=== PATIENT | female | born 1960 | race Caucasian/White ===

== ENCOUNTER 2020-02-09 21:51 | Observation (INO) ==
--- NOTE | 2020-02-09 21:58 | DR.AMS ---
HPI Time Seen Time Seen by Provider: 02/09/20 21:54 HPI Comment HPI Comment: 59 yo cf w/ pmh of cva presents w/ ams onset 4.5 hrs [employer]. Reportedly recently dc'd from 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 approx. 1730 took Ativan po on the car ride home. Became increasingly confused and lethargic. No change in right sided weakness/ chronic right sided facial droop. EMS summoned. Initially responsive only to painful stimuli. Given multiple doses of Narcan with improvement of mental status. Now on arrival to ED responsive to loud vocal stimuli and moving LUE/ LLE spontaneously. NO recent head trauma, f/c, n/v, abd pain, CP or sob. 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) Quality Quality: Decreased Alertness and Confusion Severity Severity: Moderate Context Recent: Drug Use; denies Fever, Urinary Symptoms, Vomiting and Trauma History Of: CVA PMH PMH Past Medical History: CVA, Diabetes, Hypertension and MT Past Medical History Comment: ckd Past Surgical History: Yes Surgical History: Cholecystectomy Family History Family Medical History: Diabetes Mellitus and Hypertension Social History Does patient currently use any type of tobacco product: No Do you use any recreational Drugs:: No ROS Review of Systems Unable to Obtain Due To: Altered mental status PE Vitals Vital Signs: Temp Pulse Resp BP Pulse Ox 02/09/20 23:15 115 H 40 H 96 02/09/20 23:03 119 H 30 H 95 02/09/20 21:53 99.8 F H 116 H 24 126/64 96 02/04/20 13:15 170/89 General Limitations: Altered Mental Status General Appearance: Other (alert, responsive to loud vocal stimuli, somulent. ) Head Head Exam: Normal Inspection Eyes Eye exam: Normal Appearance ENT ENT Exam: Normal Exam External Ear Exam: Normal External Inspection Nose Exam: Normal Nose Exam Mouth Exam: Normal Inspection Throat Exam: Normal Inspection Neck Neck Exam: Normal Inspection Chest Chest Inspection: Normal Inspection Respiratory Respiratory Exam: Normal Lung Sounds Bilat Cardiovascular Cardiovascular Exam: Regular Rate and Normal Rhythm Abdominal Exam Abdominal Exam: Normal Inspection, Normal Bowel Sounds and Soft Extremities Extremities Exam: Normal Inspection Back Back Exam: Normal Inspection Psychological Expanded Psychiatric Exam: Other (limited eval secondary to ams. ) Skin Skin Exam: Warm, Dry, Intact and Normal Color Other Exam Other Exam: neuro: Alert. Non verbal. Localizes painful stimuli, openes eyes to lour vocal stimulie. Moves LUE/ LLE w/o gross focal defecit. Right sided facial droop. Somulent. MDM Differential Diagnosis Metabolic: Hypoglycemia and Hypoxemia Structural: CVA and SAH Toxicologic: Drug Overdose and ETOH Intoxification COURSE Treatment Treatment: 59 yo f presents w/ ams after taking Ativan after dc from outside hospital for ischemic cva w/ residual left sided defecits. Presented at 4.5 hrs, outside of tpa window. AMS improved w/ Narcan. On serial re eval patient now awake/ alert but still mildly confused per . PEr , right sided defecits are at her baseline when dc'd from hospital. CT head with likely suba cute cva h/e motion artifact noted. d/w hospitalist Dr cevallos whom agrees to admit. Education/Counseling Education/Counseling: Family Educated On: Treatment, Diagnosis, Prognosis and Needs for Follow Up ROR Labs Reviewed Result Diagrams: 02/09/20 22:05 02/09/20 22:05 Laboratory: WBC 14.5 X10^3/uL (3.6-10.0) H 02/09/20 22:05 RBC 4.46 X10^6/uL (3.5-5.4) 02/09/20 22:05 Hgb 13.1 g/dL (12.0-16.0) 02/09/20 22:05 Hct 40.3 % (36.0-47.0) 02/09/20 22:05 MCV 90.4 fL (80.0-100.0) 02/09/20 22:05 MCH 29.3 pg (27.0-34.0) 02/09/20 22:05 MCHC 32.4 g/dL (33.0-35.0) L 02/09/20 22:05 RDW 15.1 % (11.6-16.5) 02/09/20 22:05 Plt Count 372 X10^3/uL (150.0-450.0) 02/09/20 22:05 MPV 7.8 fL (7.4-11.0) 02/09/20 22:05 Neut % (Auto) 66.2 % (42.0-75.0) 02/09/20 22:05 Lymph % (Auto) 23.7 % (21.0-51.0) 02/09/20 22:05 [place] % (Auto) 6.6 % (0.0-13.0) 02/09/20 22:05 Eos % (Auto) 2.1 % (0.9-2.9) 02/09/20 22:05 Baso % (Auto) 1.4 % (0.2-1.0) H 02/09/20 22:05 Neut # (Auto) 9.6 x10^3/uL (2.2-4.8) H 02/09/20 22:05 Lymph # (Auto) 3.4 X10^3/uL (1.3-2.9) H 02/09/20 22:05 [place] # (Auto) 1.0 x10^3/uL (0.3-0.8) H 02/09/20 22:05 Eos # (Auto) 0.3 x10^3/uL (0.0-0.2) H 02/09/20 22:05 Baso # (Auto) 0.2 X10^3/uL (0.0-0.1) H 02/09/20 22:05 Absolute Nucleated RBC 0.0 /100WBC 02/09/20 22:05 Sodium 134 mmol/L (136-145) L 02/09/20 22:05 Corrected Sodium 138 mmol/L (136-145) 02/09/20 22:05 Potassium 3.8 mmol/L (3.5-5.1) 02/09/20 22:05 Chloride 98 mmol/L (98-107) 02/09/20 22:05 Carbon Dioxide 28.3 mmol/L (21-32) 02/09/20 22:05 BUN 13 mg/dL (7-18) 02/09/20 22:05 Creatinine 1.77 mg/dL (0.55-1.02) H 02/09/20 22:05 Est GFR (MDRD) Af Amer 38 (>60) L 02/09/20 22:05 Est GFR (MDRD) Non-Af 31 (>60) L 02/09/20 22:05 Glucose 267 mg/dL (65-99) H 02/09/20 22:05 POC Glucose (mg/dL) 235 mg/dL (65-99) H 02/09/20 22:01 Calcium 8.9 mg/dL (8.5-10.1) 02/09/20 22:05 Corrected Calcium 9.7 mg/dL (8.5-10.1) 02/09/20 22:05 Total Bilirubin 0.90 mg/dL (0.2-1.0) 02/09/20 22:05 AST 11 Units/L (15-37) L 02/09/20 22:05 ALT 10 Units/L (12-78) L 02/09/20 22:05 Alkaline Phosphatase 107 Units/L (46-116) 02/09/20 22:05 Troponin I 0.05 ng/mL (0-1.5) 02/09/20 22:05 Total Protein 7.6 g/dL (6.4-8.2) 02/09/20 22:05 Albumin 3.0 g/dL (3.4-5.0) L 02/09/20 22:05 Globulin 4.6 g/dL (2.5-4.5) H 02/09/20 22:05 Albumin/Globulin Ratio 0.7 Ratio (1.1-2.1) L 02/09/20 22:05 Specimen Type Catherized urine 02/09/20 23:00 Urine Color Yellow (YELLOW) 02/09/20 23:00 Urine Appearance Clear (CLEAR) 02/09/20 23:00 Urine pH 6.0 (5.0 - 8.0) 02/09/20 23:00 Ur Specific [place] 1.015 (1.000-1.030) 02/09/20 23:00 Urine Protein 3+ (NEGATIVE) 02/09/20 23:00 Urine Glucose (UA) 3+ (NEGATIVE) 02/09/20 23:00 Urine Ketones 1+ (NEGATIVE) 02/09/20 23:00 Urine Occult Blood 3+ (NEGATIVE) 02/09/20 23:00 Urine Nitrite Negative (NEGATIVE) 02/09/20 23:00 Urine Bilirubin Negative (NEGATIVE) 02/09/20 23:00 Urine Urobilinogen Normal (NORMAL) 02/09/20 23:00 Ur Leukocyte Esterase 1+ (NEGATIVE) 02/09/20 23:00 Urine Opiates Screen Negative (NEG=<300) 02/09/20 23:00 Urine Methadone Screen Negative (NEG=<300) 02/09/20 23:00 Ur Barbiturates Screen Negative (NEG=<200) 02/09/20 23:00 Ur Phencyclidine Scrn Negative (NEG=<25) 02/09/20 23:00 Ur Amphetamines Screen Negative (NEG=<1000) 02/09/20 23:00 U Benzodiazepines Scrn Negative (NEG=<200) 02/09/20 23:00 Urine Cocaine Screen Negative (NEG=<300) 02/09/20 23:00 U Marijuana (THC) Screen Negative (NEG=<50) 02/09/20 23:00 Ethyl Alcohol mg/dL < 3 mg/dL (0-19.9) 02/09/20 22:05 EKG Rate: 118 [place]: Normal Rhythm: ST Block: None Hypertrophy: None ST: Nonsp (prolonged qtc) Opioid Opioid Risk Tool Age ([place] box if 16-45): No History of Preadolescent Sexual Abuse: No Total: 0 Total Score Risk Category: Low Risk Copyright: Seb MANUEL predicting aberrant behaviors Diagnosis Discharge Problem: Overdose of analgesic Qualifiers: Encounter type: initial encounter Injury intent: accidental or unintentional Qualified Code(s): T39.91XA - Poisoning by unspecified nonopioid analgesic, antipyretic and antirheumatic, accidental (unintentional), initial encounter CVA (cerebral vascular accident) Qualifiers: CVA mechanism: unspecified Qualified Code(s): I63.9 - Cerebral infarction, unspecified Altered mental state Qualifiers: Altered mental status type: somnolence Qualified Code(s): R40.0 - Somnolence
[2020-02-09 22:11] VITALS: BMI 26.6
[2020-02-09 22:18] LABS: BASOPHILS # (AUTO) 0.2 X10^3/uL (0.0-0.1); BASOPHILS % (AUTO) 1.4 % (0.2-1.0); EOSINOPHILS # (AUTO) 0.3 x10^3/uL (0.0-0.2); EOSINOPHILS % (AUTO) 2.1 % (0.9-2.9); HEMATOCRIT 40.3 % (36.0-47.0); HEMOGLOBIN 13.1 g/dL (12.0-16.0); LYMPHOCYTES # (AUTO) 3.4 X10^3/uL (1.3-2.9); LYMPHOCYTES % (AUTO) 23.7 % (21.0-51.0); MEAN CORPUSCULAR HEMOGLOBIN 29.3 pg (27.0-34.0); MEAN CORPUSCULAR HGB CONC 32.4 g/dL (33.0-35.0); MEAN CORPUSCULAR VOLUME 90.4 fL (80.0-100.0); MEAN PLATELET VOLUME 7.8 fL (7.4-11.0); MONOCYTES % (AUTO) 6.6 % (0.0-13.0); NEUTROPHILS # (AUTO) 9.6 x10^3/uL (2.2-4.8); NEUTROPHILS % (AUTO) 66.2 % (42.0-75.0); PLATELET COUNT 372 X10^3/uL (150.0-450.0); RED BLOOD COUNT 4.46 X10^6/uL (3.5-5.4); RED CELL DISTRIBUTION WIDTH 15.1 % (11.6-16.5); WHITE BLOOD COUNT 14.5 X10^3/uL (3.6-10.0)
[2020-02-09] MEDS ORDERED: NS 1000 ML 1,000 ML ONE (22:21)
[2020-02-09] MEDS ORDERED: NS 1000 ML 1,000 ML IV ONE (22:22)
[2020-02-09 22:34] LABS: CALCIUM 8.9 mg/dL (8.5-10.1); CARBON DIOXIDE 28.3 mmol/L (21-32); COR CA(FOR HYPOALB) 9.7 mg/dL (8.5-10.1); CREATININE 1.77 mg/dL (0.55-1.02); TOTAL PROTEIN 7.6 g/dL (6.4-8.2); TROPONIN I 0.05 ng/mL (0-1.5)
--- NOTE | 2020-02-09 23:03 | RAD ---
HISTORYAMS, SLURRED SPEECHSTUDYCHEST, 1 VIEWCOMPARISONNone mildly enlargedFINDINGSThe trachea is midline. The cardiac silhouette is unremarkable. Low lung volume. No focal consolidation, pneumothorax or pleural effusion.. The bony thorax is unremarkable.IMPRESSIONMild cardiomegaly. Low lung volume. No focal consolidation.Electronically signed by: Shaniqua Rainey (Feb 09, 2020 23:02:27)
--- NOTE | 2020-02-09 23:08 | CT ---
HISTORYAMS, SLURRED SPEECHSTUDYBRAIN W/O [id number] axial sections were obtained from the craniovertebral junc tion through the vertex using brain and bone algorithms. IV contrast was not administered. Dose redu ction techniques including Automated Exposure Control (AEC) and adjustment of mA and kV were utilized .FINDINGSSubacute/chronic appearing right temporal occipital lobe infarct, again seen. Exam is somewh at limited due to motion. There appears to be loss of palm-white differentiation of the right frontal lobe and possibly left frontal lobe, to a lesser extent. No acute intraparenchymal hemorrhage, extra -axial fluid collection, hydrocephalus or midline shift. The ventricles and sulci are mildly prominen t suggest atrophy. Mild nonspecific patchy periventricular white matter low density likely represent chronic micorvascular ischemic changes.The calvarium and the cranial base including the sella, middl e ears, and mastoids are unremarkable.The visualized orbits and paranasal sinuses are normal.IMPRESSI ONExam is limited by motion. Question loss of palm-white differentiation of the right frontal, possib ly left frontal lobe. While this could be artifactual, acute/subacute infarct cannot be entirely excl uded. Please correlate clinically with symptoms. Consider MRI for further assessment when clinically appropriate.Atrophy and evidence of chornic microvascular ischemic changes. Subacute/chronic appearin g right temporo occipital lobe infarct.Mild sinus disease as detailed.Electronically signed by: Shaniqua Rainey (Feb 09, 2020 23:07:51)
[2020-02-09 23:11] LABS: APPEARANCE,URINE CLEAR (CLEAR); BILIRUBIN,URINE NEGATIVE (NEGATIVE); BLOOD/HEMOGLOBIN,URINE 3+ (NEGATIVE); COLOR,URINE YELLOW (YELLOW); GLUCOSE, URINE 3+ (NEGATIVE); KETONES,URINE 1+ (NEGATIVE); LEUKOCYTE ESTERASE ,URINE 1+ (NEGATIVE); NITRITES,URINE NEGATIVE (NEGATIVE); PROTEIN,URINE 3+ (NEGATIVE); UROBILINOGEN,URINE NORMAL (NORMAL)
[2020-02-09] MEDS ORDERED: ASPIRIN ONE (23:24)
[2020-02-09] MEDS: ASPIRIN PO SCH (23:30)
[2020-02-09] MEDS ORDERED: HumaLOG SC PRN (23:48)
[2020-02-09] MEDS ORDERED: TYLENOL 500 MG TAB EXTRA STRENGTH PO ONE (23:49)
[2020-02-09] MEDS: TYLENOL 500 MG TAB EXTRA STRENGTH PO PRN (23:55)
[2020-02-09] MEDS: NS 1000 ML 1,000 ML IV SCH (23:58)
[2020-02-10] MEDS ORDERED: NS 1000 ML 1,000 ML ONE (05:27)
[2020-02-10] MEDS: NS 1000 ML 1,000 ML IV SCH (05:32)
[2020-02-10] MEDS: TYLENOL 500 MG TAB EXTRA STRENGTH PO PRN (07:55)
[2020-02-10] MEDS: ASPIRIN PO SCH (08:04)
[2020-02-10 09:16] VITALS: BP 140/74
[2020-02-10] MEDS ORDERED: LIPITOR TAB 40 MG PO SCH (10:00)
[2020-02-10] MEDS ORDERED: CARDIZEM CD 240 MG 24-HR PO SCH (10:00)
[2020-02-10 10:06] LABS: CALCIUM 8.6 mg/dL (8.5-10.1); CARBON DIOXIDE 27.1 mmol/L (21-32); CREATININE 1.53 mg/dL (0.55-1.02); TROPONIN I 0.03 ng/mL (0-1.5)
--- NOTE | 2020-02-10 10:20 | DR.SSS ---
SHORT STAY SUMMARY Admission Date Date of Admission: 02/09/20 Discharge Date Discharge Date: 02/10/20 Admission Diagnoses Admission Diagnoses: Altered mental status Lethargy Discharge Diagnoses Discharge Diagnoses: Medication side effect Chronic benzodiazepam use Recent CVA Chief Complaint Chief Complaint: altered mental status, drowsy History of Present Illness History of Present Illness: Ms. Duran is a 59y/o female with a hx of recent CVA presented wit AMS. 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 approx. 1730 took Ativan po on the car ride home. She became increasingly confused and lethargic. No change in right sided weakness/ chronic right sided facial droop. Initially responsive only to painful stimuli. Given multiple doses of Narcan with improvement of mental status. Now on arrival to ED responsive to loud vocal stimuli and moving LUE/ LLE spontaneously. No recent head trauma, f/c, n/v, abd pain, CP or sob. CT-Head done in the ED showed artifact and previous stroke. Patiennt admitted for further monitoring. Past Medical History Past Medical History: CVA, Diabetes, Hypertension and NM Additional Medical History: Atrial fibrillation MGUS Past Surgical History Surgical History: Cholecystectomy Allergies Allergies Allergy/AdvReac Type Severity Reaction Status Date / Time No Known Drug Allergies Allergy Verified 02/04/20 11:31 Medications Home Medications: No Known Drug Allergies Allergy (Verified 02/04/20 11:31) CONTINUE taking the following medications apixaban [Eliquis] 5 mg PO BID 02/09/20 [History] atorvastatin 80 mg PO DAILY 02/09/20 [History] diltiazem HCl 240 mg PO DAILY 02/09/20 [History] insulin glargine U-300 conc [Toujeo SoloStar U-300 Insulin] unit SUBCUT 02/09/20 [History] insulin lispro [Humalog KwikPen Insulin] unit SUBCUT 02/09/20 [History] lorazepam 1 mg PO TID 02/09/20 [History] sertraline 50 mg PO DAILY 02/09/20 [History] tizanidine 4 mg PO Q8H PRN 02/09/20 [History] tramadol 100 mg PO QID 02/09/20 [History] trazodone 50 mg PO HS 02/09/20 [History] Family History Family Medical History: Diabetes Mellitus and Hypertension Social History Does patient currently use any type of tobacco product: No Have you used tobacco products in the last 12 months: No Type of Tobacco Use: None Does any household member use tobacco: No Alcohol Use: None Drug Use: None Review of Systems Eyes: No Symptoms Reported ENT: No Symptoms Reported Respiratory: No Symptoms Reported Cardiovascular: No Symptoms Reported Gastrointestinal: No Symptoms Reported Genitourinary: No Symptoms Reported Skin: No Symptoms Reported Neurological: Weakness, Change in Speech and Confusion Physical Exam Vital Signs: Last Vital Signs Temp 98.0 F 02/10/20 08:55 Pulse 86 02/10/20 08:55 Resp 20 02/10/20 08:55 BP 140/74 02/10/20 08:55 Pulse Ox 96 02/10/20 08:55 Oriented: Normal Eyes: Normal Ear: Normal Throat: Normal Respiratory: Clear Throughout Cardiovascular: Normal Auscultation: Bowel Sounds: Normal Palpation: Normal Tenderness: Normal Skin: Normal Musculoskeletal: Right (slight right sided weakness, motor 4/5 Left intact 5/5 ) Psychiatric: Anxiety Mood Description: Calm Affect: Anxious Speech Pattern: Clear and Appropriate Labs Labs: Laboratory Last Values WBC 14.5 X10^3/uL (3.6-10.0) H 02/09/20 22:05 RBC 4.46 X10^6/uL (3.5-5.4) 02/09/20 22:05 Hgb 13.1 g/dL (12.0-16.0) 02/09/20 22:05 Hct 40.3 % (36.0-47.0) 02/09/20 22:05 MCV 90.4 fL (80.0-100.0) 02/09/20 22:05 MCH 29.3 pg (27.0-34.0) 02/09/20 22:05 MCHC 32.4 g/dL (33.0-35.0) L 02/09/20 22:05 RDW 15.1 % (11.6-16.5) 02/09/20 22:05 Plt Count 372 X10^3/uL (150.0-450.0) 02/09/20 22:05 MPV 7.8 fL (7.4-11.0) 02/09/20 22:05 Neut % (Auto) 66.2 % (42.0-75.0) 02/09/20 22:05 Lymph % (Auto) 23.7 % (21.0-51.0) 02/09/20 22:05 [place] % (Auto) 6.6 % (0.0-13.0) 02/09/20 22:05 Eos % (Auto) 2.1 % (0.9-2.9) 02/09/20 22:05 Baso % (Auto) 1.4 % (0.2-1.0) H 02/09/20 22:05 Neut # (Auto) 9.6 x10^3/uL (2.2-4.8) H 02/09/20 22:05 Lymph # (Auto) 3.4 X10^3/uL (1.3-2.9) H 02/09/20 22:05 [place] # (Auto) 1.0 x10^3/uL (0.3-0.8) H 02/09/20 22:05 Eos # (Auto) 0.3 x10^3/uL (0.0-0.2) H 02/09/20 22:05 Baso # (Auto) 0.2 X10^3/uL (0.0-0.1) H 02/09/20 22:05 Absolute Nucleated RBC 0.0 /100WBC 02/09/20 22:05 Sodium 137 mmol/L (136-145) 02/10/20 09:30 Corrected Sodium 139 mmol/L (136-145) 02/10/20 09:30 Potassium 3.5 mmol/L (3.5-5.1) 02/10/20 09:30 Chloride 100 mmol/L (98-107) 02/10/20 09:30 Carbon Dioxide 27.1 mmol/L (21-32) 02/10/20 09:30 BUN 14 mg/dL (7-18) 02/10/20 09:30 Creatinine 1.53 mg/dL (0.55-1.02) H 02/10/20 09:30 Est GFR (MDRD) Af Amer 45 (>60) L 02/10/20 09:30 Est GFR (MDRD) Non-Af 37 (>60) L 02/10/20 09:30 Glucose 184 mg/dL (65-99) H 02/10/20 09:30 POC Glucose (mg/dL) 202 mg/dL (65-99) H 02/10/20 05:53 Calcium 8.6 mg/dL (8.5-10.1) 02/10/20 09:30 Corrected Calcium 9.7 mg/dL (8.5-10.1) 02/09/20 22:05 Total Bilirubin 0.90 mg/dL (0.2-1.0) 02/09/20 22:05 AST 11 Units/L (15-37) L 02/09/20 22:05 ALT 10 Units/L (12-78) L 02/09/20 22:05 Alkaline Phosphatase 107 Units/L (46-116) 02/09/20 22:05 Troponin I 0.03 ng/mL (0-1.5) 02/10/20 09:30 Total Protein 7.6 g/dL (6.4-8.2) 02/09/20 22:05 Albumin 3.0 g/dL (3.4-5.0) L 02/09/20 22:05 Globulin 4.6 g/dL (2.5-4.5) H 02/09/20 22:05 Albumin/Globulin Ratio 0.7 Ratio (1.1-2.1) L 02/09/20 22:05 Specimen Type Catherized urine 02/09/20 23:00 Urine Color Yellow (YELLOW) 02/09/20 23:00 Urine Appearance Clear (CLEAR) 02/09/20 23:00 Urine pH 6.0 (5.0 - 8.0) 02/09/20 23:00 Ur Specific [place] 1.015 (1.000-1.030) 02/09/20 23:00 Urine Protein 3+ (NEGATIVE) 02/09/20 23:00 Urine Glucose (UA) 3+ (NEGATIVE) 02/09/20 23:00 Urine Ketones 1+ (NEGATIVE) 02/09/20 23:00 Urine Occult Blood 3+ (NEGATIVE) 02/09/20 23:00 Urine Nitrite Negative (NEGATIVE) 02/09/20 23:00 Urine Bilirubin Negative (NEGATIVE) 02/09/20 23:00 Urine Urobilinogen Normal (NORMAL) 02/09/20 23:00 Ur Leukocyte Esterase 1+ (NEGATIVE) 02/09/20 23:00 Urine Opiates Screen Negative (NEG=<300) 02/09/20 23:00 Urine Methadone Screen Negative (NEG=<300) 02/09/20 23:00 Ur Barbiturates Screen Negative (NEG=<200) 02/09/20 23:00 Ur Phencyclidine Scrn Negative (NEG=<25) 02/09/20 23:00 Ur Amphetamines Screen Negative (NEG=<1000) 02/09/20 23:00 U Benzodiazepines Scrn Negative (NEG=<200) 02/09/20 23:00 Urine Cocaine Screen Negative (NEG=<300) 02/09/20 23:00 U Marijuana (THC) Screen Negative (NEG=<50) 02/09/20 23:00 Ethyl Alcohol mg/dL < 3 mg/dL (0-19.9) 02/09/20 22:05 Hospital Course Hospital Course: Patient presented with altered mental status and lethargy. She was recently discharged from [place] with recent stroke and right sided weakn ess. Patient is on chronic benzodiazepines and reports taking her ativan prior to leaving the hospital. She does not recall taking medications during the car ride. She mentions that she was anxious and is nore sure if her gave her ativan to calm her down. UDS negative. Patient was lethargic on presentation and received multiple doses of narcan. She woke up with that and was able to communicate. Patient seen the following day and was alert and oriented. She did not have any new neurological deficits. Patient is scheduled to see her PCP and neurologist. She was stable for discharge. She was advsied to discuss her medications with her PCP. She is on ativan prn along with tizanidine and tramadol. Discharge Medications Discharge Medications: Home Medication List apixaban [Eliquis] 5 mg PO BID 02/09/20 [History] atorvastatin 80 mg PO DAILY 02/09/20 [History] diltiazem HCl 240 mg PO DAILY 02/09/20 [History] insulin glargine U-300 conc [Toujeo SoloStar U-300 Insulin] unit SUBCUT 02/09/20 [History] insulin lispro [Humalog KwikPen Insulin] unit SUBCUT 02/09/20 [History] lorazepam 1 mg PO TID 02/09/20 [History] sertraline 50 mg PO DAILY 02/09/20 [History] tizanidine 4 mg PO Q8H PRN 02/09/20 [History] tramadol 100 mg PO QID 02/09/20 [History] trazodone 50 mg PO HS 02/09/20 [History] Prescriptions: Discharge Disposition Discharge Disposition: Home
[2020-02-10] MEDS ORDERED: SNACK - Diabetic Appropriate PO SCH (20:00)
== END 2020-02-10 11:30 | disposition home or self-care (01) ==
LOC: OBS 21:52 → ER 21:52 → OBS 23:45 → MED/SURG 02-10 07:52 → UNDODISOB 02-10 08:47
PROVIDERS: ADMIT Internal Medicine; ATTEND Internal Medicine

== ENCOUNTER 2021-04-23 14:00 | Observation (INO) ==
[2021-04-23 14:17] VITALS: BMI 29.5
[2021-04-23] MEDS ORDERED: NS 1,000 ML IV 1,000 ML ONE (14:36)
--- NOTE | 2021-04-23 14:47 | DR.GENAD ---
HPI Time Seen Time Seen by Provider: 04/23/21 14:32 PCP Primary Care Physician: DR. KILGORE Complaint/Symptoms Chief Complaint:: PT'S STATES PT HAS NOT COMPREHENDING WELL ONSET YESTERDAY. ALSO STATES PT KEEP ASKING SAME QUESTIONS OVER & OVER. PT HAS HX OF STROKE. IN TRIAGE PT A&O X3, PT ABLE TO SPEAK IN COMPLETE SENTENCES @ THIS TIME. COVID-19 Coronavirus risk:travel/contact w/high risk person: No Has patient experienced Coronavirus symptoms: No Nurses notes reviewed Nurses Notes Review: Yes Source History Provided: Patient Mode of Arrival Mode of Arrival: Ambulatory Timing Onset of Chief Complaint: 04/22/21 Came on: Suddenly Duration Duration: Constant Duration: Hours Severity Severity: Moderate PMH PMH Past Medical History: Yes Past Medical History: CVA, Diabetes, Hypertension and [place] Past Surgical History: Yes Surgical History: Cholecystectomy, Hysterectomy and Ortho Surgery Past Surgical History Comment: BACK SURGERY Family History History of Family Medical Conditions: Yes Family Medical History: Diabetes Mellitus and Hypertension Social History Does patient currently use any type of tobacco product: Yes Have you used tobacco products in the last 12 months: Yes Type of Tobacco Use: Cigarettes Do you use any recreational Drugs:: No Travel Risk Coronavirus risk:travel/contact w/high risk person: No Has patient experienced Coronavirus symptoms: No Infectious screening Have you traveled outside the country in the last 6 months?: No Isolation: Standard ROS Review of Systems Constitutional: No Symptoms Reported and See HPI; negative Fever, Weakness and Fatigue Eyes: No Symptoms Reported and See HPI; negative Blurred Vision and Diplopia ENTM: No Symptoms Reported and See HPI; negative Nose Discharge and Nose Congestion Respiratoy: See HPI and Short of Breath (ON EXERTION); negative Moist Cough and Wheezing Cardiovascular: No Symptoms Reported and See HPI; negative Chest Pain Gastrointestinal/Abdominal: No Symptoms Reported and See HPI; negative Abdominal Pain, Diarrhea and Vomiting Genitourinary: No Symptoms Reported and See HPI; negative Dysuria Neurological: See HPI and Headache; negative Weakness and Dizziness Musculoskeletal: No Symptoms Reported and See HPI Integumentary: No Symptoms Reported and See HPI; negative Change in Color, Rash and Juandice Hematologic/Lymphatic: No Symptoms Reported and See HPI; negative Easy Bruising Endocrine: No Symptoms Reported and See HPI; negative Increased Thirst and Increased Urine Psychiatric: No Symptoms Reported and See HPI All Other Systems: Reviewed and Negative PE Vital Signs Vitals: Temperature 98.5 F Pulse Rate 87 Respiratory Rate 18 Blood Pressure [Left Arm] 140/74 Blood Pressure 181/77 O2 Sat by Pulse Oximetry 95 General Limitations: No Limitations General Appearance: Alert and In No Apparent Distress Head Head Exam: Normal Inspection Eyes Eye exam: Normal Appearance; negative Scleral Icterus and Conjunctival Injection ENT ENT Exam: Normal Exam, Normal Oropharynx, Normal External Ear Exam and TM's Normal Bilaterally External Ear Exam: Normal External Inspection; negative Mastoid Tenderness TM/Canal Exam: Bilateral: Normal Nose Exam: Normal Nose Exam Mouth Exam: Normal Inspection; negative Lip Swelling and Tongue Swelling Throat Exam: Normal Inspection; negative Tonsillar Erythema, Tonsillomegaly and Tonsillar Exudate Neck Neck Exam: Normal Inspection and Trachea Midline; negative Tenderness Chest Chest Inspection: Normal Inspection and Symmetric Chest Wall Rise; negative Tenderness Respiratory Respiratory Exam: Normal Lung Sounds Bilat; negative Accessory Muscle Use, Chest Wall Tenderness and Respiratory Distress Respiratory Exam: Bilateral: Rhonchi and Lower: Rhonchi Cardiovascular Cardiovascular Exam: Regular Rate, Normal Rhythm and Normal Heart Sounds; negative Systolic Murmur and Diastolic Murmur Abdominal Exam Abdominal Exam: Normal Inspection, Normal Bowel Sounds and Soft; negative Tenderness Extremities Extremities Exam: Normal Inspection Back Back Exam: Normal Inspection; negative (R) CVA Tenderness and (L) CVA Tenderness Neurologic Neurological Exam: Alert Psychiatric Psychiatric Exam: Normal Affect and Normal Mood Skin Skin Exam: Warm, Dry, Intact and Normal Color ROR Labs Reviewed Result Diagrams: 04/23/21 15:23 04/23/21 15:25 Laboratory: WBC 14.1 X10^3/uL (3.6-10.0) H 04/23/21 15:23 RBC 4.15 X10^6/uL (3.5-5.4) 04/23/21 15:23 Hgb 12.1 g/dL (12.0-16.0) 04/23/21 15:23 Hct 35.7 % (36.0-47.0) L 04/23/21 15:23 MCV 86.0 fL (80.0-100.0) 04/23/21 15:23 MCH 29.1 pg (27.0-34.0) 04/23/21 15:23 MCHC 33.8 g/dL (33.0-35.0) 04/23/21 15:23 RDW 14.7 % (11.6-16.5) 04/23/21 15: Plt Count 313 X10^3/uL (150.0-450.0) 04/23/21 15: Plt Count Comment Adequate (ADEQUATE) 04/23/21 15:23 MPV 8.4 fL (7.4-11.0) 04/23/21 15: Neut % (Auto) 60.0 % (42.0-75.0) 04/23/21 15:23 Lymph % (Auto) 27.3 % (21.0-51.0) 04/23/21 15:23 [place] % (Auto) 6.9 % (0.0-13.0) 04/23/21 15: Eos % (Auto) 3.7 % (0.9-2.9) H 04/23/21 15:23 Baso % (Auto) 2.1 % (0.2-1.0) H 04/23/21 15:23 Neut # (Auto) 8.5 x10^3/uL (2.2-4.8) H 04/23/21 15:23 Lymph # (Auto) 3.9 X10^3/uL (1.3-2.9) H 04/23/21 15:23 [place] # (Auto) 1.0 x10^3/uL (0.3-0.8) H 04/23/21 15:23 Eos # (Auto) 0.5 x10^3/uL (0.0-0.2) H 04/23/21 15:23 Baso # (Auto) 0.3 X10^3/uL (0.0-0.1) H 04/23/21 15:23 Absolute Nucleated RBC 0.1 /100WBC 04/23/21 15:23 Plt Morphology Comment Normal (NORMAL) 04/23/21 15: RBC Morphology Normal (NORMAL) 04/23/21 15:23 Sodium 130 mmol/L (136-145) L 04/23/21 15:25 Corrected Sodium 133 mmol/L (136-145) L 04/23/21 15:25 Potassium 3.9 mmol/L (3.5-5.1) 04/23/21 15:25 Chloride 94 mmol/L (98-107) L 04/23/21 15:25 Carbon Dioxide 26.7 mmol/L (21-32) 04/23/21 15:25 BUN 17 mg/dL (7-18) 04/23/21 15:25 Creatinine 1.69 mg/dL (0.55-1.02) H 04/23/21 15:25 Est GFR (MDRD) Af Amer 40 (>60) L 04/23/21 15:25 Est GFR (MDRD) Non-Af 33 (>60) L 04/23/21 15:25 Glucose 221 mg/dL (65-99) H 04/23/21 15:25 Calcium 8.8 mg/dL (8.5-10.1) 04/23/21 15:25 Corrected Calcium TNP 04/23/21 15:25 Total Bilirubin 0.30 mg/dL (0.2-1.0) 04/23/21 15:25 AST 8 Units/L (15-37) L 04/23/21 15:25 ALT 12 Units/L (12-78) 04/23/21 15:25 Alkaline Phosphatase 144 Units/L (46-116) H 04/23/21 15:25 Ammonia 17 umol/L (11-32) 04/23/21 15:25 Creatine Kinase 85 Units/L (26-192) 04/23/21 15:25 CK-MB (CK-2) 1.9 ng/mL (0-4.0) 04/23/21 15:25 CK/CKMB % Calc 2.2 % (<4) 04/23/21 15:25 Troponin I < 0.02 ng/mL (0-1.5) 04/23/21 15:25 Total Protein 7.4 g/dL (6.4-8.2) 04/23/21 15:25 Albumin 3.5 g/dL (3.4-5.0) 04/23/21 15:25 Globulin 3.9 g/dL (2.5-4.5) 04/23/21 15:25 Albumin/Globulin Ratio 0.9 Ratio (1.1-2.1) L 04/23/21 15:25 Ethyl Alcohol mg/dL < 3 mg/dL (0-19.9) 04/23/21 15:25 Acetone, Semi-Quant Negative (NEGATIVE) 04/23/21 15:25 Opioid Opioid Risk Tool Age ([place] box if 16-45): No History of Preadolescent Sexual Abuse: No Total: 0 Total Score Risk Category: Low Risk Copyright: Seb MANUEL predicting aberrant behaviors
--- NOTE | 2021-04-23 15:19 | CT ---
BRAIN W/O CONHistory: UNABLE TO COMMUNICATE, AMS ONSET 1 DAY AGO, HX CVATechnique: CT images of the brain were obtained without contrast. Reformatted images in the coronal and sagittal planes also generated for review. Automatic exposure was utilized.Comparison: 02/09/2020Findings: There is age-appropriate generalized cerebral atrophy with commensurate ventricular and sulcal enlargement. There are patchy areas of periventricular and subcortical white matter hypoattenuation, which are nonspecific but are likely on the basis of chronic small vessel ischemic disease. There are remote infarcts and encephalomalacia of the right parietal and occipital lobes with associated ex vacuo dilatation of the occipital horn of the right lateral ventricle. Remaining palm-white differentiation is maintained. No visible acute infarction is identified. If clinical concern for acute ischemia remains high and would make a clinical difference to diagnose stroke now, consider MRI for further evaluation. There is no intracranial hemorrhage, extra-axial collection, hydrocephalus or mass. Visualized paranasal sinuses and mastoid air cells are clear. Imaged extracranial structures are grossly unremarkable.Impression:No acute intracranial abnormality.Age related atrophy and chronic ischemic changes as above.Electronically signed by: SAMINA MONROY (Apr 23, 2021 15:17:17)
[2021-04-23 15:39] LABS: BASOPHILS # (AUTO) 0.3 X10^3/uL (0.0-0.1); BASOPHILS % (AUTO) 2.1 % (0.2-1.0); EOSINOPHILS # (AUTO) 0.5 x10^3/uL (0.0-0.2); EOSINOPHILS % (AUTO) 3.7 % (0.9-2.9); HEMATOCRIT 35.7 % (36.0-47.0); HEMOGLOBIN 12.1 g/dL (12.0-16.0); LYMPHOCYTES # (AUTO) 3.9 X10^3/uL (1.3-2.9); LYMPHOCYTES % (AUTO) 27.3 % (21.0-51.0); MEAN CORPUSCULAR HEMOGLOBIN 29.1 pg (27.0-34.0); MEAN CORPUSCULAR HGB CONC 33.8 g/dL (33.0-35.0); MEAN PLATELET VOLUME 8.4 fL (7.4-11.0); MONOCYTES % (AUTO) 6.9 % (0.0-13.0); NEUTROPHILS # (AUTO) 8.5 x10^3/uL (2.2-4.8); PLATELET COUNT 313 X10^3/uL (150.0-450.0); RED BLOOD COUNT 4.15 X10^6/uL (3.5-5.4); RED CELL DISTRIBUTION WIDTH 14.7 % (11.6-16.5); WHITE BLOOD COUNT 14.1 X10^3/uL (3.6-10.0)
--- NOTE | 2021-04-23 15:41 | RAD ---
HISTORYSHORTNESS OF BREATH Relevant Clinical InformationSTUDYCHEST, 1 VIEWCOMPARISONAP chest February 09, 2020.FINDINGSThe trachea is midline. The cardiac silhouette is unremarkable. The lungs are clear without focal infiltrate or effusion. The bony thorax is unremarkable.IMPRESSIONNo acute cardiopulmonary findings and no change from the prior chest film February 09, 2020..Electronically signed by: MACY DIEGO (Apr 23, 2021 15:40:23)
[2021-04-23 15:42] LABS: AMMONIA 17 umol/L (11-32)
[2021-04-23 15:51] LABS: SERUM ACETONE NEGATIVE (NEGATIVE)
[2021-04-23 15:58] LABS: ALANINE AMINOTRANSFERASE 12 Units/L (12-78); ALBUMIN 3.5 g/dL (3.4-5.0); ALKALINE PHOSPHATASE 144 Units/L (46-116); ASPARTATE AMINO TRANSFERASE 8 Units/L (15-37); BLOOD ALCOHOL < 3 mg/dL (0-19.9); BLOOD UREA NITROGEN 17 mg/dL (7-18); CALCIUM 8.8 mg/dL (8.5-10.1); CARBON DIOXIDE 26.7 mmol/L (21-32); CHLORIDE 94 mmol/L (98-107); CKMB % 2.2 % (<4); COR NA(FOR HYPERGLY) 133 mmol/L (136-145); CREATINE KINASE 85 Units/L (26-192); CREATINE KINASE MB 1.9 ng/mL (0-4.0); CREATININE 1.69 mg/dL (0.55-1.02); SODIUM 130 mmol/L (136-145); TOTAL PROTEIN 7.4 g/dL (6.4-8.2); TROPONIN I < 0.02 ng/mL (0-1.5); eGFR NON BLACK RACES 33 (>60)
[2021-04-23 16:07] LABS: PLATELET MORPHOLOGY COMMENT NORMAL (NORMAL)
[2021-04-23] MEDS: NS 1,000 ML IV 1,000 ML IV SCH (18:32)
[2021-04-23 20:45] LABS: BILIRUBIN,URINE NEGATIVE (NEGATIVE); BLOOD/HEMOGLOBIN,URINE 1+ (NEGATIVE); GLUCOSE, URINE 3+ (NEGATIVE); KETONES,URINE NEGATIVE (NEGATIVE); LEUKOCYTE ESTERASE ,URINE NEGATIVE (NEGATIVE); NITRITES,URINE NEGATIVE (NEGATIVE); PROTEIN,URINE 1+ (NEGATIVE); UROBILINOGEN,URINE NORMAL (NORMAL)
[2021-04-23 20:53] LABS: APPEARANCE,URINE CLEAR (CLEAR); COLOR,URINE PALE YELLOW (YELLOW)
[2021-04-23 20:54] LABS: BACTERIA,URINE NEGATIVE /HPF (NEGATIVE); RBC,URINE NONE SEEN /HPF (0-3); SQUAMOUS EPITHELIAL CELL,UR RARE /HPF (NEGATIVE)
[2021-04-23] MEDS ORDERED: REQUIP PO SCH (21:00)
[2021-04-23] MEDS ORDERED: NEURONTIN CAP 300 MG PO SCH (21:00)
[2021-04-23] MEDS: ULTRAM PO PRN (21:03)
[2021-04-23] MEDS ORDERED: CATAPRES TAB 0.1 MG PO ONE (23:19)
[2021-04-23 23:22] LABS: CKMB % 1.8 % (<4); CREATINE KINASE 68 Units/L (26-192); CREATINE KINASE MB 1.2 ng/mL (0-4.0); TROPONIN I < 0.02 ng/mL (0-1.5)
[2021-04-24] MEDS: ULTRAM PO PRN (06:07)
[2021-04-24] MEDS: NS 1,000 ML IV 1,000 ML IV SCH (06:23)
[2021-04-24 06:39] LABS: BASOPHILS # (AUTO) 0.1 X10^3/uL (0.0-0.1); BASOPHILS % (AUTO) 1.3 % (0.2-1.0); EOSINOPHILS # (AUTO) 0.4 x10^3/uL (0.0-0.2); EOSINOPHILS % (AUTO) 4.3 % (0.9-2.9); HEMATOCRIT 38.8 % (36.0-47.0); HEMOGLOBIN 13.4 g/dL (12.0-16.0); LYMPHOCYTES # (AUTO) 2.9 X10^3/uL (1.3-2.9); LYMPHOCYTES % (AUTO) 32.3 % (21.0-51.0); MEAN CORPUSCULAR HEMOGLOBIN 29.6 pg (27.0-34.0); MEAN CORPUSCULAR HGB CONC 34.4 g/dL (33.0-35.0); MEAN PLATELET VOLUME 8.6 fL (7.4-11.0); MONOCYTES # (AUTO) 0.6 x10^3/uL (0.3-0.8); MONOCYTES % (AUTO) 7.1 % (0.0-13.0); NEUTROPHILS # (AUTO) 4.9 x10^3/uL (2.2-4.8); PLATELET COUNT 365 X10^3/uL (150.0-450.0); RED BLOOD COUNT 4.51 X10^6/uL (3.5-5.4); WHITE BLOOD COUNT 8.9 X10^3/uL (3.6-10.0)
[2021-04-24 07:08] LABS: ALANINE AMINOTRANSFERASE 11 Units/L (12-78); ALBUMIN 3.4 g/dL (3.4-5.0); ALKALINE PHOSPHATASE 162 Units/L (46-116); ASPARTATE AMINO TRANSFERASE 9 Units/L (15-37); BLOOD UREA NITROGEN 13 mg/dL (7-18); CALCIUM 9.3 mg/dL (8.5-10.1); CHLORIDE 100 mmol/L (98-107); CKMB % 1.8 % (<4); COR NA(FOR HYPERGLY) 139 mmol/L (136-145); CREATINE KINASE 55 Units/L (26-192); CREATININE 1.32 mg/dL (0.55-1.02); MAGNESIUM 2.2 mg/dL (1.7-2.9); SODIUM 136 mmol/L (136-145); TOTAL PROTEIN 7.7 g/dL (6.4-8.2); TROPONIN I < 0.02 ng/mL (0-1.5); eGFR NON BLACK RACES 43 (>60)
[2021-04-24 09:47] VITALS: BP 149/85
== END 2021-04-24 10:25 | disposition home or self-care (01) ==
LOC: MED/SURG 14:10 → ER 14:10 → MED/SURG 18:22
PROVIDERS: ADMIT Internal Medicine; ATTEND Internal Medicine
DX: F10.10 Alcohol abuse, uncomplicated; R94.31 Abnormal electrocardiogram [ECG] [EKG]; Z79.899 Other long term (current) drug therapy; E87.1 Hypo-osmolality and hyponatremia; I10 Essential (primary) hypertension; Z20.822 Contact with and (suspected) exposure to COVID-19; R41.82 Altered mental status, unspecified; R06.02 Shortness of breath